=== PATIENT | female | born 1995 | race Caucasian/White ===

== ENCOUNTER 2018-05-25 23:05 | Emergency (ER) | payer BC ==
[~2018-05-25] VITALS: Ht 175.3 cm; Wt 83.9 kg
[2018-05-25 23:11] VITALS: Ht 175.3 cm; Wt 83.9 kg
[2018-05-25] MEDS ORDERED: IBUPROFEN 800 MG TAB PO STA (23:21)
--- NOTE | 2018-05-25 23:22 | EMERGENCY ROOM VISIT NOTE ---
History First contact with patient: 23:14 Chief Complaint: WRIST PAIN Stated Complaint: HURT LEFT WRIST History of Present Illness The patient is a 23 year old female who presents to the Emergency Room with complaints of an injury to her left wrist. The patient states that she tripped over a tree stump and fell earlier this afternoon, landing onto her left wrist. She states she has had increased pain and swelling in the wrist throughout the day. She rates her current discomfort a 3/10 at rest but states that her pain increases to a 6/10 with any movement of the wrist. She denies any numbness or weakness. She denies any other injuries. She denies previous injuries to this wrist. She has not taken any medication for her pain. She has applied ice with little relief. Review of Systems A complete 6 point review of systems was reviewed with the patient with pertinent positives and negatives as per history of present illness. All else were negative. Past Medical/Surgical History Medical Problems: (1) No significant active problems Social History Smoking Status: Never Smoker Alcohol Use: occasionally Occupation Status: [employer] Current/Historical Medications No Active Prescriptions or Reported Meds Physical Exam Vital Signs Date Time Temp Pulse Resp B/P (MAP) Pulse Ox O2 Delivery O2 Flow Rate FiO2 05/26/18 01:10 37.1 88 19 135/99 99 05/25/18 23:11 37.1 101 18 145/101 98 Room Air Physical Exam VITALS: Vitals are noted on the nurse's note and reviewed by myself. Vital signs stable. GENERAL: This is a 23-year-old female, in no acute distress, nondiaphoretic, well-developed well-nourished. SKIN: There are no lacerations or abrasions. MUSCULOSKELETAL: There is moderate soft tissue swelling over the left wrist. Patient has tenderness throughout the wrist, but primarily over the distal radius. No tenderness of the proximal forearm or hand. Full range of motion of the wrist and all fingers. Pie Baker strength 4/5. NEURO: Patient was alert and oriented to person place and time. Distal sensation intact. Medical Decision & Procedures ER Provider Diagnostic Interpretation: LEFT WRIST: There is a comminuted intra-articular fracture of the distal radius. There is approximately 15 of dorsal angulation of the distal segment. The ulna appears intact. Per my interpretation, radiology read pending. Medications Administered Medications (Trade) Dose Ordered Sig/Angus Route Start Time Stop Time Status Last Admin Dose Admin Ibuprofen (Motrin Tab) 800 mg NOW STAT PO 05/25/18 23:21 05/25/18 23:22 DC 05/25/18 23:21 800 MG Medical Decision Differential diagnosis includes fracture, contusion, sprain, among others. The patient was evaluated as above. Left wrist x-ray was performed and reviewed by myself as noted above. She was given 800 mg ibuprofen for pain. A sugar tong Ortho-Glass splint was applied by the ED healthcare technician under my supervision. Neurovascular status was reassessed and was intact. I did speak with Dr. Parrish regarding the patient; they will follow-up with her in the office this week. She declined any stronger analgesics. Conservative measures were discussed. She verbalized understanding of my assessment and treatment plan and was discharged home in good condition. Medication Reconcilliation Current Medication List: was personally reviewed by me Blood Pressure Screening Patient's blood pressure: Normal blood pressure Impression Primary Impression: Distal radius fracture, left Departure Information Dispostion Home / Self-Care Condition GOOD Prescriptions No Active Prescriptions or Reported Meds Referrals No Doctor, Assigned (PCP) Mark Parrish M.D. Patient Instructions My [facility] Additional Instructions You have been treated in the Emergency Department for a wrist fracture. For pain control, you can use the following [id number] medicines (if >12 yo): - Regular strength (325mg/tab) Tylenol (acetaminophen) 2 tabs every 4-6 hours as needed. Do not exceed 12 tablets in a 24 hour period. Avoid taking more than 4 grams (4000 mg) of Tylenol per day. This includes any other sources of acetaminophen you may take on a regular basis. - Regular strength (200 mg/tab) Advil (ibuprofen) 1-2 tabs every 4-6 hours as needed. Do not exceed a dose of 3200 mg per day. If this is a recent injury (<24 hrs), ice can be applied to the area of pain for the first 3 days to help decrease pain and inflammation. Keep the splint in place until follow-up with orthopedics. Do NOT remove the splint or get the splint wet. Contact orthopedics first thing Sunday morning to schedule a follow-up appointment. Return to the Emergency Department if your current symptoms worsen despite treatment course outlined above, or if you develop any of the following symptoms : intractable pain despite aforementioned treatment course or new onset of numbness or tingling of the fingers. Problem Qualifiers Primary Impression: Distal radius fracture, left Encounter type: initial encounter Fracture type: closed Fracture morphology : Yany' Qualified Codes: S52.532A - Colles' fracture of left radius, initial encounter for closed fracture
[2018-05-26 01:10] VITALS: BP 135/99; PULSE 88; TEMP 37.1; O2SAT 99
--- NOTE | 2018-05-26 06:49 | DIAGNOSTIC IMAGING REPORT ---
L WRIST W/NAVICULAR MIN 3 VIEWS HISTORY: 23 years-old Female left wrist pain, injury acute left wrist pain status post trauma COMPARISON: None available TECHNIQUE: 5 views of the left wrist FINDINGS: There is an acute comminuted and impacted actually about the distal radial metaphysis with intra-articular extension. There is impaction of approximately 1 cm with dorsal displacement of 8 mm. Mild volar angulation of approximately 15 degrees. Distal ulna appears intact. Moderate soft tissue swelling about the wrist and distal forearm. Carpal bones specifically the scaphoid appears intact. IMPRESSION: 1. Acute comminuted, displaced and impacted intra-articular fracture of the distal radius. 2. No carpal bone fracture identified, specifically the scaphoid appears intact. The above report was generated using voice recognition software. It may contain grammatical, syntax or spelling errors. Electronically signed by: Callum Calhoun M.D. 05/26/2018 6:47 AM Dictated Date/Time: 05/26/2018 6:45 AM
== END 2018-05-26 01:11 | disposition home or self-care (01) ==
LOC: C.EDB 23:07 → C.EDC 05-26 01:11
DX: S52.532A Colles' fracture of left radius, initial encounter for closed fracture (principal); W18.09XA Striking against other object with subsequent fall, initial encounter